=== PATIENT | male | born 1995 | race Caucasian/White ===

== ENCOUNTER 2017-11-11 09:18 | Emergency (ER) | payer OTHER ==
[2017-11-11] MEDS ORDERED: Aspirin EC Low Dose* 81 MG TAB.EC PO ONE (09:42)
[2017-11-11 09:44] VITALS: BP 113/59
--- NOTE | 2017-11-11 09:49 | ED ---
HPI Chest Pain - HPI Summary HPI Summary: 22 yr male with complaint of piercing sharp chest pain. Onset of symptoms was on SaturdayNovember 08, sudden onset, sharp and piercing, associated with SOB. He has not had cough, fever, chills. He denies crack/cocaine, street drugs. He is a [employer] Student. - History of Current Complaint Chief Complaint: UCChestPain Time Seen by Provider: 11/11/17 09:38 Pain Intensity: 6 - Allergy/Home Medications Allergies/Adverse Reactions: Allergies Allergy/AdvReac Type Severity Reaction Status Date / Time No Known Allergies Allergy Verified 11/11/17 09:27 Home Medications: Home Medications Acetaminophen [APAP] 325 mg PO 11/11/17 [History] Magnesium 11/11/17 [History] Naproxen 500 mg PO 11/11/17 [History] Nortriptyline CAP* [Nortriptylline CAP*] 15 mg 11/11/17 [History] PMH/Surg Hx/FS Hx/Imm Hx Psychiatric History: Reports: Hx Anxiety - Surgical History Surgery Procedure, Year, and Place: HERNIA A CHILD Infectious Disease History: No Infectious Disease History: Denies: Traveled Outside the in Last 30 Days - Family History Known Family History: Positive: Diabetes Family History: older people with heart disease - Social History Occupation: Student Alcohol Use: Weekly Substance Use Type: Reports: None Smoking Status (MU): Light Every Day Tobacco Smoker Type: Cigarettes Review of Systems Constitutional: Negative Eyes: Negative ENT: Negative Positive: Chest Pain Positive: Shortness Of Breath Positive: Anxious All Other Systems Reviewed And Are Negative: Yes Physical Exam Triage Information Reviewed: Yes Vital Signs On Initial Exam: Initial Vitals Temp Pulse Resp BP Pulse Ox 98.5 F 80 22 113/59 100 11/11/17 09:22 11/11/17 09:22 11/11/17 09:22 11/11/17 09:22 11/11/17 09:22 Vital Signs Reviewed: Yes Appearance: Positive: Well-Appearing, No Pain Distress Skin: Positive: Warm, Skin Color Reflects Adequate Perfusion Head/Face: Positive: Normal Head/Face Inspection Eyes: Positive: EOMI ENT: Positive: Pharynx normal Neck: Positive: Supple, Nontender Respiratory/Lung Sounds: Positive: Clear to Auscultation, Breath Sounds Present Cardiovascular: Positive: RRR. Negative: Murmur Abdomen Description: Positive: Nontender Musculoskeletal: Positive: Strength/ROM Intact Neurological: Positive: Sensory/Motor Intact, Alert, Oriented to Person Place, Time, CN Intact II-III Psychiatric: Positive: Normal - Shira Coma Scale Best Eye Response: 4 - Spontaneous Best Motor Response: 6 - Obeys Commands Best Verbal Response: 5 - Oriented Coma Scale Total: 15 Diagnostics - Vital Signs Vital Signs Temp Pulse Resp BP Pulse Ox 11/11/17 09:22 98.5 F 80 22 113/59 100 - Laboratory Lab Statement: Any lab studies that have been ordered have been reviewed, and results considered in the medical decision making process. - EKG 11/11/17 Cardiac Rate: NL Ectopy: None EKG Interpretation: NSR with diffuse ST elevations inferior lateral leads, no recip change Chest Pain Course/Dx - Course Course Of Treatment: 22 yr old with pleuritic chest pain, EKG with diffuse ST elevation and no reciprical changes. DW Dr Pendleton at [facility] and patient by EMS to hospital. Possible pericarditis. - Diagnoses Provider Diagnoses: Pleuritic chest pain Discharge - Discharge Plan Condition: Good Disposition: TRANS HIGHER LVL OF CARE FAC
[2017-11-11] MEDS ORDERED: Aspirin Low Dose CHEW TAB* 81 MG ONE (10:06)
== END 2017-11-11 09:55 | disposition short-term general hospital (02) ==
LOC: UCCORT 09:18
DX: R07.89 Other chest pain (principal); F41.9 Anxiety disorder, unspecified; F17.210 Nicotine dependence, cigarettes, uncomplicated
CPT/HCPCS: 93005; 99203; A9270-GY; G0463